=== PATIENT | female | born 1970 | race Two or more races ===

== ENCOUNTER 2018-01-14 09:56 | Outpatient (CLI) | payer OTHER ==
[~2018-01-14 09:56] MED LIST: RELPAX40 MG PO
== END 2018-01-14 10:23 | disposition home or self-care (01) ==
LOC: RAD 501 09:56
DX: M25.562 Pain in left knee (principal)

== ENCOUNTER 2018-02-11 12:20 | Outpatient (CLI) | payer OTHER | END 2018-02-11 12:21 | disposition home or self-care (01) | LOC: RAD 12:20 | DX: M25.522 Pain in left elbow (principal) ==